=== PATIENT | female | born 1990 ===

== ENCOUNTER 2025-01-31 13:15 | Inpatient (IN) | payer OTHER ==
[~2025-01-31] VITALS: Ht 157.5 cm; Wt 3.2 kg
[2025-02-08 11:19] LABS: BASO % 0.2 % (0.1-1.2); EOS # 0.12 (0.04-0.54); EOS % 1.1 % (0.7-7.0); HEMATOCRIT 32.5 % (34.1-44.9); HEMOGLOBIN 10.9 g/dL (11.2-15.7); LYMPH # 1.56 (1.18-3.74); LYMPH % 14.6 % (19.3-53.1); MEAN CORPUSCULAR HEMOGLOBIN 28.1 pg (25.6-32.2); MONO # 0.79 (0.24-0.82); MONO % 7.4 % (4.7-12.5); NEUT # 8.15 (1.56-6.13); NEUT % 76.3 % (34.0-71.1); PLATELET COUNT 212 K/uL (163-369); RED BLOOD COUNT 3.88 M/uL (3.93-5.22)
[2025-02-08 11:22] LABS: PH,URINE 6.5 (5.0-8.0); URINE APPEARANCE Cloudy; URINE BILIRRUBIN Negative (NEGATIVE); URINE BLOOD Negative; URINE COLOR Yellow; URINE GLUCOSE Negative (NEGATIVE); URINE KETONE Negative (NEGATIVE); URINE LEUKOCYTE Small; URINE NITRATE Negative; URINE PROTEIN Trace (NEGATIVE)
[2025-02-08 11:25] LABS: URINE BACTERIA 2326.6 uL (0.0-1933); URINE EPITHELIAL CELLS 92.6 uL (0.0-38.8); URINE WBC 131.8 uL (0.0-23.2)
[2025-02-08 11:46] LABS: INR < 0.93; PARTIAL THROMBOPLASTIN TIME 24.5 SECONDS (22.0-34.0); PROTHROMBIN TIME 10.2 SECONDS (9.0-11.5)
[2025-02-08 11:52] LABS: ALBUMIN 2.7 gm/dL (3.4-5.0); BILIRUBIN TOTAL 0.24 mg/dL (0.3-1.2); CALCIUM 8.8 mg/dL (8.5-10.1); CREATININE SERUM 0.37 mg/dL (0.55-1.02); GFR 199.91; GLOBULINA 3.8 G/DL (2.4-3.5); POTASSIUM 3.66 mEq/L (3.5-5.1); TOTAL PROTEIN 6.5 gm/dL (6.4-8.2); URINE CAST 0.29 uL (0.0-1.40); URINE YEAST FEW /hpf
[2025-02-09 07:40] VITALS: BP 121/74
[2025-02-09] MEDS ORDERED: CLINDAMYCIN PHOSPHATE 150 MG/ML (900mg) ONE (09:01)
[2025-02-09] MEDS ORDERED: OXYTOCIN 10 UNITS/ML VIAL ONE (10:02)
[2025-02-09] MEDS ORDERED: ERYTHROMYCIN BASE OPHT 1GM EACH TUBE OP ONE (10:02)
[2025-02-09] MEDS ORDERED: MORPHINE SULFATE 4 MG/ML CARTRIDGE IV PRN (11:30)
[2025-02-09] MEDS ORDERED: RINGERS SOLUTION,LACTATED 1,000 ML IV SCH (11:30)
[2025-02-09] MEDS ORDERED: MORPHINE SULFATE 4 MG/ML VIAL IV ONE (13:20)
[2025-02-09] MEDS ORDERED: CEFAZOLIN SODIUM 1,000 MG VIAL IV SCH (14:00)
[2025-02-09 18:19] VITALS: BP 118/67
[2025-02-09 23:58] VITALS: BP 103/64
[2025-02-10 02:39] LABS: BASO % 0.3 % (0.1-1.2); EOS # 0.08 (0.04-0.54); EOS % 0.7 % (0.7-7.0); HEMATOCRIT 29.4 % (34.1-44.9); HEMOGLOBIN 9.7 g/dL (11.2-15.7); LYMPH # 1.58 (1.18-3.74); LYMPH % 14.6 % (19.3-53.1); MONO # 0.97 (0.24-0.82); NEUT # 8.12 (1.56-6.13); NEUT % 75.1 % (34.0-71.1); PLATELET COUNT 206 K/uL (163-369); RED BLOOD COUNT 3.46 M/uL (3.93-5.22); RED CELL DISTRIBUTION WIDTH 14.3 % (11.6-14.4)
[2025-02-10 05:00] VITALS: BP 121/78
[2025-02-10] MEDS ORDERED: ACETAMINOPHEN 500 MG GEL..CAP PO PRN (08:15)
[2025-02-10] MEDS ORDERED: IBUprofen 800 MG TABLET PO PRN (08:15)
[2025-02-10 08:49] VITALS: BP 107/69
[2025-02-10 18:06] VITALS: BP 119/74
[2025-02-11] VITALS: BP 119/70
[2025-02-11 08:38] VITALS: BP 91/65
[2025-02-11] MEDS ORDERED: IBUPROFEN800 MG PO (09:53)
== END 2025-02-11 13:17 | disposition home or self-care (01) | DRG 788 ==
LOC: OB/GYN 02-09 06:45 → O/R 02-09 06:45 → OB/GYN 02-09 12:30
PROVIDERS: ADMIT Specialist; ATTEND Specialist
PROC: 4A1HXCZ Monitoring of Products of Conception, Cardiac Rate, External Approach (ICD-10-PCS; 2025-02-09)
PROC: 10D00Z1 Extraction of Products of Conception, Low, Open Approach (ICD-10-PCS; principal; 2025-02-09 12:30)
DX: O33.8 Maternal care for disproportion of other origin (principal); O48.0 Post-term pregnancy; O24.420 Gestational diabetes mellitus in childbirth, diet controlled; O69.81X0 Labor and delivery complicated by cord around neck, without compression, not applicable or unspecified; Z3A.40 40 weeks gestation of pregnancy; Z37.0 Single live birth